=== PATIENT | male | born 1980 | race Caucasian/White ===

== ENCOUNTER → 2021-06-15 | Outpatient (CLI) | payer BC ==
--- NOTE | 2021-06-15 12:55 | US ---
EXAMINATION TYPE: US venous doppler duplex LE LT DATE OF EXAM: 06/15/2021 12:39 PM COMPARISON: NONE CLINICAL HISTORY: M79.662 pain L leg, L03.90 cellulitis. Swelling and skin redness left thigh to kevyn f x 5 days. SIDE PERFORMED: Left TECHNIQUE: The lower extremity deep venous system is examined utilizing real time linear array sonog gordon with graded compression, doppler sonography and color-flow sonography. VESSELS IMAGED: Common Femoral Vein Deep Femoral Vein Greater Saphenous Vein * Femoral Vein Popliteal Vein Small Saphenous Vein * Proximal Calf Veins (* superficial vessels) Deep vein show compressibility, no abnormal luminal echoes, normal color flow and vascular waveforms. Left Leg: Negative for DVT; Is positive for Superficial Vein Thrombosis of Greater Saphenous Vein fr om anterior mid thigh to lateral calf leg leg at patient's area of swelling and skin redness, varicos ities with luminal clot. Tech findings called to Dr Martin's Office at exam's end. JJ IMPRESSION: Superficial venous thrombosis as described. No evident deep venous thrombosis within the left lower extremity from the level the knee centrally
== END | disposition home or self-care (01) ==
LOC: RADUSWWP 12:05
PROVIDERS: ATTEND Family Medicine
DX: I82.812 Embolism and thrombosis of superficial veins of left lower extremity (principal)